=== PATIENT | female | born 1995 | race Caucasian/White ===

== ENCOUNTER 2017-04-04 09:16 | Emergency (ER) | payer BC ==
[2017-04-04 09:52] VITALS: BP 137/84
--- NOTE | 2017-04-04 10:30 | UC ---
Respiratory Complaint HPI - HPI Summary HPI Summary: cough x 3 weeks chest congestion , mild nasal congestion , no fever, no chills, no wheezing , no sob 2. itchy scalp x 3 days , ? head lice - History of Current Complaint Chief Complaint: UCRespiratory Stated Complaint: KAYLI, COUGH, RUNNY NOSE, HEAD COMP Time Seen by Provider: 04/04/17 10:09 Hx Obtained From: Patient Hx Last Menstrual Period: ~03/22/17 Onset/Duration: Gradual Onset, Lasting Weeks - 3, Still Present Timing: Constant Severity Initially: Moderate Severity Currently: Moderate Character: Cough: Nonproductive Aggravating Factors: Deep Breaths Alleviating Factors: Nothing Associated Signs And Symptoms: Positive: URI, Nasal Congestion. Negative: Wheezing, Hemoptysis - Allergies/Home Medications Allergies/Adverse Reactions: Allergies Allergy/AdvReac Type Severity Reaction Status Date / Time No Known Allergies Allergy Verified 04/04/17 09:48 Home Medications: Home Medications Albuterol HFA INHALER* [Ventolin HFA Inhaler*] 1 - 2 puff INH Q4H PRN 04/04/17 [ History Confirmed 04/04/17] Norgestimate-Ethinyl Estradiol [Tri-Linyah] 1 tab PO DAILY 04/04/17 [History Confirmed 04/04/17] PMH/Surg Hx/FS Hx/Imm Hx Previously Healthy: Yes - Surgical History Surgical History: Yes Surgery Procedure, Year, and Place: [place] [facility], 2009 - Family History Known Family History: Negative: Diabetes - Social History Alcohol Use: Occasionally Substance Use Type: None Smoking Status (MU): Never Smoked Tobacco - Immunization History Most Recent Influenza Vaccination: February 2017 Review of Systems Constitutional: Negative Skin: Negative Eyes: Negative ENT: Negative Respiratory: Negative Cardiovascular: Negative Is Patient Immunocompromised?: No All Other Systems Reviewed And Are Negative: Yes Physical Exam Triage Information Reviewed: Yes Appearance: Well-Appearing, No Pain Distress, Well-Nourished Vital Signs: Initial Vital Signs Temp 98.2 F 04/04/17 09:47 Pulse 112 04/04/17 09:47 Resp 16 04/04/17 09:47 BP 137/84 04/04/17 09:47 Pulse Ox 100 04/04/17 09:47 Eye Exam: Normal Eyes: Positive: Conjunctiva Clear ENT: Positive: Normal ENT inspection, Hearing grossly normal, Pharynx normal Neck: Positive: Supple, Nontender, No Lymphadenopathy Respiratory: Positive: Chest non-tender, Lungs clear, Normal breath sounds Cardiovascular: Positive: RRR, No Murmur, Pulses Normal Skin: Positive: Other - + head lice, + multiple nits UC Diagnostic Evaluation - Laboratory O2 Sat by Pulse Oximetry: 100 Respiratory Course/Dx - Differential Dx/Diagnosis Provider Diagnoses: bronchitis. head lice Discharge - Discharge Plan Condition: Stable Disposition: HOME Prescriptions: Permethrin 1% LOTION* [Nix 1% LOTION*] 1 applic TOPICAL SEE INSTRUCTIONS #1 btl Patient Education Materials: Pediculosis (ED), Acute Bronchitis (ED) Additional Instructions: viral bronchitis : cont. with rest, increase fluid, take Mucinex follow up as needed
== END 2017-04-04 10:30 | disposition home or self-care (01) ==
LOC: UCCORT 09:16
DX: J40 Bronchitis, not specified as acute or chronic (principal); B85.0 Pediculosis due to Pediculus humanus capitis
CPT/HCPCS: 99212; G0463

== ENCOUNTER 2017-09-05 09:36 | Emergency (ER) | payer BC ==
[2017-09-05 09:49] VITALS: BP 125/74
--- NOTE | 2017-09-05 09:58 | UC ---
Abdominal Pain Female HPI - HPI Summary HPI Summary: diarrhea x 3 days mild abdominal pain , no fever, no chill, no vomiting and no urinary sx - History of Current Complaint Chief Complaint: UCGI Stated Complaint: FEVER CHILLS ACHY DIARRHEA Time Seen by Provider: 09/05/17 09:51 Hx Obtained From: Patient Hx Last Menstrual Period: 08/09/17 ?: No Onset/Duration: Gradual Onset, Lasting Days - 4, Still Present Timing: Constant Severity Initially: Moderate Severity Currently: Moderate Pain Intensity: 0 Location: Diffuse Radiates: No Character: Cramping Aggravating Factor(s): Food Alleviating Factor(s): Nothing Associated Signs and Symptoms: Positive: Vomiting. Negative: Diaphoresis, Fever , Cough, Chest Pain, Dizzy, Back Pain, Constipation, Blood in Stool, Urinary Symptoms, Decreased Appetite, Vaginal Bleeding, Vaginal Discharge, Nausea, Diarrhea Allergies/Adverse Reactions: Allergies Allergy/AdvReac Type Severity Reaction Status Date / Time No Known Allergies Allergy Verified 09/05/17 09:46 PMH/Surg Hx/FS Hx/Imm Hx Respiratory History: Asthma - Surgical History Surgical History: Yes Surgery Procedure, Year, and Place: [place] [facility], 2009 - Family History Known Family History: Negative: Diabetes - Social History Alcohol Use: Occasionally Substance Use Type: None Smoking Status (MU): Never Smoked Tobacco - Immunization History Most Recent Influenza Vaccination: February 2017 Review of Systems Constitutional: Negative Skin: Negative Eyes: Negative ENT: Negative Respiratory: Negative Cardiovascular: Negative Gastrointestinal: Diarrhea Is Patient Immunocompromised?: No All Other Systems Reviewed And Are Negative: Yes Physical Exam Triage Information Reviewed: Yes Appearance: Well-Appearing, No Pain Distress, Well-Nourished Vital Signs: Initial Vital Signs Temp 98 F 09/05/17 09:45 Pulse 101 09/05/17 09:45 Resp 16 09/05/17 09:45 BP 125/74 09/05/17 09:45 Pulse Ox 100 09/05/17 09:45 Vital Signs Reviewed: Yes Eye Exam: Normal Eyes: Positive: Conjunctiva Clear ENT: Positive: Normal ENT inspection, Hearing grossly normal, Pharynx normal Neck: Positive: Supple, Nontender, No Lymphadenopathy Respiratory Exam: Normal Respiratory: Positive: Chest non-tender, Lungs clear, Normal breath sounds Cardiovascular: Positive: RRR, No Murmur, Pulses Normal Abdomen Description: Positive: Nontender, No Organomegaly, Soft. Negative: CVA Tenderness (R), CVA Tenderness (L), Distended, Guarding Bowel Sounds: Positive: Present Abd Pain Female Course/Dx - Differential Dx/Diagnosis Provider Diagnoses: viral illness Discharge - Sign-Out/Discharge Documenting (check all that apply): Discharge/Admit/Transfer - Discharge Plan Condition: Stable Disposition: HOME Patient Education Materials: Viral Syndrome (ED) Forms: *Work Release Referrals: Non Staff,Doctor [Primary Care Provider] - If Needed - Billing Disposition and Condition Condition: STABLE Disposition: HOME
== END 2017-09-05 10:02 | disposition home or self-care (01) ==
LOC: UCCORT 09:36
DX: B34.9 Viral infection, unspecified (principal)
CPT/HCPCS: 99211; G0463